=== PATIENT | male | born 1935 | race Caucasian/White ===

== ENCOUNTER 2021-05-06 00:20 | Emergency (ER) | payer OTHER, MEDICARE ==
[~2021-05-06] VITALS: Ht 175.3 cm; Wt 87.7 kg
--- NOTE | 2021-05-06 00:32 | NUR ---
PT ROOMED IN BED 4
[2021-05-06] MEDS ORDERED: silver nitrate applicator stick TP ONE (00:50)
[2021-05-06] MEDS ORDERED: CEPH-585 PO (01:20)
[2021-05-06 02:28] VITALS: BP 110/46
== END 2021-05-06 02:31 | disposition home or self-care (01) ==
LOC: ER 00:21
DX: S91.111A Laceration without foreign body of right great toe without damage to nail, initial encounter (principal); E13.622 Other specified diabetes mellitus with other skin ulcer; Z79.2 Long term (current) use of antibiotics; X58.XXXA Exposure to other specified factors, initial encounter; Y93.89 Activity, other specified; Y92.89 Other specified places as the place of occurrence of the external cause; Y99.8 Other external cause status
CPT/HCPCS: 12001; 99283